=== PATIENT | male | born 2000 | race American Indian/Alaskan Native ===

== ENCOUNTER 2021-05-16 20:30 | Emergency (ER) | payer SELFPAY ==
--- NOTE | 2021-05-16 20:40 | Emergency Department Report ---
HPI - General Time Seen by Provider: 05/16/21 20:34 - HPI HPI: 21-year-old -[place] male presents to the emergency department with a laceration to the right side of his head, a generalized headache, right shoulder pain and chest wall pain after a bookshelf fell down on top of him. The patient was up high on a bookshelf in the garage when suddenly it tipped over. The bookshelf fell on top of him and he hit the ground. He is not sure exactly what happened as he passed out at this point. At the time of my examination he is awake, alert, oriented with the previously mentioned complaints. He has a past medical history of asthma. He has not taken anything for symptoms prior to presentation. Unknown tetanus vaccination status. ED Past Medical Hx - Medications Home Medications: Home Medications Medication Instructions Recorded Confirmed Last Taken Type HYDROcodone/APAP 5-325 [[place] 1 each PO Q6HR PRN #12 tablet 05/16/21 Unknown Rx 5/325] Ondansetron [Zofran Odt] 4 mg PO Q8HR PRN #15 tab.rapdis 05/16/21 Unknown Rx Sulfamethoxazole/Trimethoprim 1 each PO BID #10 tablet 05/16/21 Unknown Rx [Bactrim DS TAB] ED Review of Systems ROS: Stated complaint: LACERATION Other details as noted in HPI Comment: All other systems reviewed and negative Constitutional: denies: chills, fever Eyes: denies: eye pain, vision change ENT: denies: ear pain, throat pain Respiratory: denies: cough, shortness of breath Cardiovascular: chest pain (Chest wall pain), syncope Gastrointestinal: denies: abdominal pain, vomiting Genitourinary: denies: dysuria, discharge Musculoskeletal: arthralgia, myalgia Skin: other (Right lateral scalp laceration). denies: rash Neurological: headache. denies: numbness, paresthesias - Laceration /Wound Repair Right Head Wound Location: head (Right lateral scalp) Wound Length (cm): 3 Wound's Depth, Shape: linear Wound Explored: no foreign body removed Irrigated w/ Saline (ccs): 50 Anesthesia: 1% Lidocaine Volume Anesthetic (ccs): 8 Wound Repaired With: sutures Suture Size/Type: 4:0, 3:0, proline Number of Sutures: 5 (1 horizontal mattress, 4 simple interrupted) Layer Closure?: No Sterile Dressing Applied?: Yes ED Medical Decision Making - Radiology Data Radiology results: report reviewed CT head/brain wo con INDICATION / CLINICAL INFORMATION: 21 years Male; Trauma. TECHNIQUE: Routine CT head without contrast. All CT scans at this location are performed using CT dose reduction for ALARA by means of automated exposure control. COMPARISON: None. FINDINGS: BRAIN / INTRACRANIAL CONTENTS: No acute hemorrhage, mass effect, midline shift, hydrocephalus, or acute, large territorial infarct. No signs of significant atrophy or chronic infarct. No significant white matter abnormality seen. CRANIOCERVICAL JUNCTION: No significant abnormality. ORBITS: No significant abnormality of visualized orbits. SINUSES / MASTOIDS: Visualized paranasal sinuses and mastoid air cells are essentially clear. ADDITIONAL FINDINGS: Prominent soft tissue is seen in the roof the nasopharynx, presumably related to reactive adenoidal tissue. Please clinically correlate. IMPRESSION: 1. No focal mass, hemorrhage, hydrocephalus, or acute, large territorial infarct. CT cervical spine wo con INDICATION / CLINICAL INFORMATION: 21 years Male; Trauma. TECHNIQUE: Axial CT images of the cervical spine were obtained. Sagittal and coronal reformatted images were produced. All CT scans at this location are performed using CT dose reduction for ALARA by means of automated exposure control. COMPARISON: None available. FINDINGS: POST-SURGICAL CHANGES: None. ALIGNMENT: No significant abnormality. VERTEBRAE: No signs of vertebral fracture. Vertebral bodies are grossly normal in height throughout. Small, nondisplaced fractures seen in the medial aspect of the first and second ribs on the right at the costotransverse junctions. There may be a similar finding involving the medial aspect of the fifth rib on the right near the costotransverse junction. No significant facet joint disease or osseous foraminal narrowing appreciated. INTRAVERTEBRAL DISCS: Minimal disc disease seen at various levels. No dominant herniation or canal stenosis appreciated. PARASPINAL SOFT TISSUES: No significant abnormality. ADDITIONAL FINDINGS: Very small pneumothorax suggested on the right. IMPRESSION: 1. Small, nondisplaced rib fractures noted on the right, as described above. 2. Very small pneumothorax suggested on the right, as well. CHEST 2 VIEWS INDICATION / CLINICAL INFORMATION: Trauma. COMPARISON: None available. FINDINGS: SUPPORT DEVICES: None. HEART / MEDIASTINUM: No significant abnormality. LUNGS / PLEURA: No significant pulmonary or pleural abnormality. No pneumothorax. ADDITIONAL FINDINGS: No significant additional findings. IMPRESSION: 1. No acute findings. RIGHT SHOULDER 3 VIEW(S) INDICATION / CLINICAL INFORMATION: Trauma COMPARISON: None available. FINDINGS: BONES / JOINT(S): No acute fracture or subluxation. No significant arthritis. SOFT TISSUES: No significant abnormality. ADDITIONAL FINDINGS: None. LUMBAR SPINE 2 VIEWS INDICATION / CLINICAL INFORMATION: Back pain COMPARISON: None available. FINDINGS: BONES / JOINT(S): No acute fracture or subluxation. No significant arthritis. SOFT TISSUES: No significant abnormality. ADDITIONAL FINDINGS: None. THORACIC SPINE 2 VIEWS INDICATION / CLINICAL INFORMATION: Back pain. COMPARISON: None available. FINDINGS: BONES / JOINT(S): No acute fracture or subluxation. No significant arthritis. SOFT TISSUES: No significant abnormality. ADDITIONAL FINDINGS: None. - Medical Decision Making This patient presents to the emergency department after he fell off of a bookshelf and the bookshelf fell on top of him in the garage prior to presentation. He has an obvious right lateral scalp laceration and complains of a headache, right shoulder pain, and right chest wall pain. He is awake, oriented, AAO x3. He does not have any focal, motor or sensory deficits and cranial nerves are intact. CT scan of the head without contrast does not show any skull fracture, hemorrhage, large vessel occlusion, or any other acute process. CT of the cervical spine without contrast shows small nondisplaced medial rib 1 and 2 fractures at the costotransverse junctions. There is also mention of a possible small right-sided apical pneumothorax. 2 view chest x-ray does not show any pneumothorax, obvious rib fractures, pneu monia, signs of pulmonary contusion, or any other acute process. X-ray of the right shoulder does not show any fracture, dislocation, or any acute process. X-rays of the thoracic and lumbar spine did not show any fracture, subluxation, or any acute process. The patient's scalp laceration was repaired as per the procedure section with sutures. I believe the patient may have had a concussion given the loss of consciousness, headache, and some nausea with vomiting. He was given a dose of Zofran ODT and there was no further vomiting afterwards. The patient will be given a prescription for pain medication and antibiotics. He has been given outpatient referral for orthopedist for the rib fractures. We had a long conversation about monitoring for signs and symptoms of infection with the sut ured wound. I later called back and spoke with the patient regarding the CT cervical spine findings of a small apical pneumothorax. The patient did not have any tachypnea or signs of respiratory distress. The patient's oxygen saturation was 98 to 100% on room air. This certainly is not something that would require a chest tube or any type of emergent intervention. I wanted to make the patient aware in case he began having any increased shortness of breath and if so he will immediately return to the closest emergency department. All questions have been answered for the patient and his family members at bedside. Critical Care Time: No Critical care attestation.: If time is entered above; I have spent that time in minutes in the direct care of this critically ill patient, excluding procedure time. ED Disposition Clinical Impression: Scalp laceration Qualifiers: Encounter type: initial encounter Qualified Code(s): S01.01XA - Laceration without foreign body of scalp, initial encounter Rib fractures Qualifiers: Encounter type: initial encounter Fracture type: closed Laterality: right Qualified Code(s): S22.41XA - Multiple fractures of ribs, right side, initial encounter for closed fracture Concussion Qualifiers: Encounter type: initial encounter Loss of consciousness presence/duration: with LOC of 30 min or less Qualified Code(s): S06.0X1A - Concussion with loss of consciousness of 30 minutes or less, initial encounter Head trauma Qualifiers: Encounter type: initial encounter Qualified Code(s): S09.90XA - Unspecified injury of head, initial encounter Disposition: 01 HOME / SELF CARE / HOMELESS Is pt being admited?: No Condition: Stable Instructions: Head Injury, Adult, Rib Fracture, Laceration Care, Adult, Concussion, Adult, Post-Concussion Syndrome, Sutured Wound Care Additional Instructions: Please follow-up with a primary care physician. I am giving you a referral for 2 different local orthopedic groups, Dr. Torres, and [facility], to follow-up regarding your rib fractures. The sutures will need to come out in about 7 days. This can be done at a primary care office, urgent care, or in the emergency department. Please monitor for signs of infection such as increased pain, increased swelling, surrounding redness, development of fever, or discharge of pus. You have been prescribed a medication that is sedating and therefore should not be taken prior to driving, working, and responsible for children and in no way should be mixed with alcohol of any quantity. Return to the emergency department with any worsening of your symptoms, new or concerning symptoms not addressed during this current emergency department visit, or with any acute distress. Prescriptions: Sulfamethoxazole/Trimethoprim [Bactrim DS TAB] 1 each PO BID #10 tablet HYDROcodone/APAP 5-325 [[place] 5/325] 1 each PO Q6HR PRN #12 tablet PRN Reason: Pain Ondansetron [Zofran Odt] 4 mg PO Q8HR PRN #15 tab.rapdis PRN Reason: Nausea Referrals: RAMA TORRES MD [Staff Physician] - 3-5 Days [facility] [Provider Group] - 3-5 Days Time of Disposition: 23:46
--- NOTE | 2021-05-16 21:41 | Cat Scan Report ---
. CT head/brain wo con INDICATION / CLINICAL INFORMATION: 21 years Male; Trauma. TECHNIQUE: Routine CT head without contrast. All CT scans at this location are performed using CT dos e reduction for ALARA by means of automated exposure control. COMPARISON: None. FINDINGS: BRAIN / INTRACRANIAL CONTENTS: No acute hemorrhage, mass effect, midline shift, hydrocephalus, or acu te, large territorial infarct. No signs of significant atrophy or chronic infarct. No significant whi te matter abnormality seen. CRANIOCERVICAL JUNCTION: No significant abnormality. ORBITS: No significant abnormality of visualized orbits. SINUSES / MASTOIDS: Visualized paranasal sinuses and mastoid air cells are essentially clear. ADDITIONAL FINDINGS: Prominent soft tissue is seen in the roof the nasopharynx, presumably related to reactive adenoidal tissue. Please clinically correlate. IMPRESSION: 1. No focal mass, hemorrhage, hydrocephalus, or acute, large territorial infarct. Signer Name: Sixto Moon MD, III Signed: 05/16/2021 9:36 PM Workstation Name: [email or web address]Las [facility]as[facility]
--- NOTE | 2021-05-16 21:49 | Cat Scan Report ---
CT cervical spine wo con INDICATION / CLINICAL INFORMATION: 21 years Male; Trauma. TECHNIQUE: Axial CT images of the cervical spine were obtained. Sagittal and coronal reformatted images were pr oduced. All CT scans at this location are performed using CT dose reduction for ALARA by means of aut omated exposure control. COMPARISON: None available. FINDINGS: POST-SURGICAL CHANGES: None. ALIGNMENT: No significant abnormality. VERTEBRAE: No signs of vertebral fracture. Vertebral bodies are grossly normal in height throughout. Small, nondisplaced fractures seen in the medial aspect of the first and second ribs on the right at the costotransverse junctions. There may be a similar finding involving the medial aspect of the fift h rib on the right near the costotransverse junction. No significant facet joint disease or osseous foraminal narrowing appreciated. INTRAVERTEBRAL DISCS: Minimal disc disease seen at various levels. No dominant herniation or canal st enosis appreciated. PARASPINAL SOFT TISSUES: No significant abnormality. ADDITIONAL FINDINGS: Very small pneumothorax suggested on the right. IMPRESSION: 1. Small, nondisplaced rib fractures noted on the right, as described above. 2. Very small pneumothorax suggested on the right, as well. Dedicated CT the chest may be helpful in evaluating for further rib injuries on the right, if clinically warranted. Signer Name: Sixto Moon MD, III Signed: 05/16/2021 9:45 PM Workstation Name: [email or web address]
--- NOTE | 2021-05-16 21:50 | XRay Report ---
CHEST 2 VIEWS INDICATION / CLINICAL INFORMATION: Trauma. COMPARISON: None available. FINDINGS: SUPPORT DEVICES: None. HEART / MEDIASTINUM: No significant abnormality. LUNGS / PLEURA: No significant pulmonary or pleural abnormality. No pneumothorax. ADDITIONAL FINDINGS: No significant additional findings. IMPRESSION: 1. No acute findings. Signer Name: Derick Lyles DO Signed: 05/16/2021 9:46 PM Workstation Name: [id number]
--- NOTE | 2021-05-16 21:51 | XRay Report ---
RIGHT SHOULDER 3 VIEW(S) INDICATION / CLINICAL INFORMATION: Trauma COMPARISON: None available. FINDINGS: BONES / JOINT(S): No acute fracture or subluxation. No significant arthritis. SOFT TISSUES: No significant abnormality. ADDITIONAL FINDINGS: None. Signer Name: Derick Lyles DO Signed: 05/16/2021 9:46 PM Workstation Name: [id number]
[2021-05-16] MEDS ORDERED: oxyCODONE /ACETAMINOPHEN 5-325MG TAB PO ONE (22:00)
[2021-05-16] MEDS ORDERED: LIDOCAINE (1%) 10 MG/1 ML VIAL 20 ML MDV INFILTRATI ONE (22:00)
[2021-05-16] MEDS ORDERED: TETANUS,DIPH,PERTUSS(ACELL) VACCINE 0.5 ML SYRINGE IM ONE (22:00)
[2021-05-16] MEDS ORDERED: ONDANSETRON 4 MG ODT TAB PO ONE (22:41)
--- NOTE | 2021-05-16 23:37 | XRay Report ---
THORACIC SPINE 2 VIEWS INDICATION / CLINICAL INFORMATION: Back pain. COMPARISON: None available. FINDINGS: BONES / JOINT(S): No acute fracture or subluxation. No significant arthritis. SOFT TISSUES: No significant abnormality. ADDITIONAL FINDINGS: None. Signer Name: Mariano Cheatham MD Signed: 05/16/2021 11:33 PM Workstation Name: [id number]
--- NOTE | 2021-05-16 23:39 | XRay Report ---
LUMBAR SPINE 2 VIEWS INDICATION / CLINICAL INFORMATION: Back pain COMPARISON: None available. FINDINGS: BONES / JOINT(S): No acute fracture or subluxation. No significant arthritis. SOFT TISSUES: No significant abnormality. ADDITIONAL FINDINGS: None. Signer Name: Mariano Cheatham MD Signed: 05/16/2021 11:34 PM Workstation Name: [id number]
[2021-05-17] MEDS ORDERED: traMADol 50 MG TAB PO ONE (00:01)
[2021-05-17 00:24] VITALS: BP 130/73
== END 2021-05-17 00:20 | disposition home or self-care (01) ==
LOC: ED 20:30
DX: S22.31XA Fracture of one rib, right side, initial encounter for closed fracture (principal); S01.01XA Laceration without foreign body of scalp, initial encounter; S06.0X9A Concussion with loss of consciousness of unspecified duration, initial encounter; Z88.8 Allergy status to other drugs, medicaments and biological substances; Z88.0 Allergy status to penicillin; W19.XXXA Unspecified fall, initial encounter; Y93.89 Activity, other specified; Y92.89 Other specified places as the place of occurrence of the external cause; Y99.8 Other external cause status
CPT/HCPCS: 12002; 70450; 71046; 72070; 72100; 72125; 73030; 90471; 90715; 99284; J3490; Q0162